=== PATIENT | male | born 1990 | race African-American/Black ===

== ENCOUNTER 2024-06-13 10:07 | Emergency (ER) | payer SELFPAY ==
[~2024-06-13] VITALS: Ht 177.8 cm; Wt 75.0 kg
[2024-06-13 10:24] VITALS: O2SAT 99
[2024-06-13 11:09] VITALS: BP 120/76; PULSE 68; RESP 14; TEMP 37.00296; O2SAT 99
== END 2024-06-13 11:09 | disposition home or self-care (01) ==
LOC: ER 10:07
DX: R22.0 Localized swelling, mass and lump, head (principal)
CPT/HCPCS: 99281